=== PATIENT | female | born 1935 | race Caucasian/White ===

== ENCOUNTER 2017-05-31 11:49 | Emergency (ER) | payer OTHER ==
[~2017-05-31] VITALS: Ht 165.1 cm; Wt 84.4 kg
--- NOTE | 2017-05-31 11:52 | NUR ---
BRA FROM [facility] DT PT IS MORE ALTERED THAN USUAL, PATIENT RECEIVED ALTERED. APPEARS IN NO DISTRESS. PATIENT IS SATING WELL ON ROOM AIR, SATING 98%. SKIN IS NON DIAPHORETIC, . GOWNED PT AND PLACED ON TELE MONITOR,. MD MACHADO AT BEDSIDE
--- NOTE | 2017-05-31 11:53 | NUR ---
Note undone in EDM - 05/31/17 at 1553 by [email or web address] BIBRA FROM HOME DT PT IS MORE ALTERED THAN USUAL, PATIENT RECEIVED ALTERED. APPEARS IN NO DISTRESS. PATIENT IS SATING WELL ON ROOM AIR, SATING 98%. SKIN IS NON DIAPHORETIC, . GOWNED PT AND PLACED ON TELE MONITOR,. MD MACHADO AT BEDSIDE
[2017-05-31] MEDS ORDERED: IV NS 0.9% 1,000 ML BAG IV ONE ×2 (12:00→13:30)
[2017-05-31 12:05] LABS: BASOPHILS # (AUTO) 0.1 /CMM (0.0-0.2); BASOPHILS % (AUTO) 1.5 % (0.0-2.0); EOSINOPHILS % (AUTO) 0.4 % (0.0-6.0); HEMATOCRIT 34 % (33-45); HEMOGLOBIN 11.2 g/dL (11.5-14.8); LYMPHOCYTES # (AUTO) 1.7 /CMM (0.8-4.8); LYMPHOCYTES % (AUTO) 22.4 % (20.0-44.0); MEAN CORPUSCULAR HEMOGLOBIN 27 PG (26.0-33.0); MEAN CORPUSCULAR HGB CONC 33 g/dl (31.0-36.0); MEAN CORPUSCULAR VOLUME 82 fL (82-100); MONOCYTES # (AUTO) 0.7 /CMM (0.1-1.30); MONOCYTES % (AUTO) 8.8 % (2.0-12.0); NEUTROPHILS # (AUTO) 5.1 /CMM (1.8-8.9); NEUTROPHILS % (AUTO) 66.9 % (43.0-81.0); PLATELET COUNT (AUTO) 250 /CMM (150-450); RDW COEFFICIENT OF VARIATION 13.8 (11.5-15.0); RED BLOOD CELL COUNT(AUTO) 4.16 MIL/uL (4.0-5.2); WHITE BLOOD COUNT (AUTO) 7.6 K/uL (4.3-11.0)
[2017-05-31 12:15] LABS: CALCIUM, SERUM 9.2 mg/dL (8.5-10.1); CARBON DIOXIDE 29 mmol/L (21-32); CHLORIDE 102 mmol/L (98-107); GLUCOSE 232 mg/dL (74-106); POTASSIUM 3.4 mmol/L (3.5-5.1); SODIUM SERUM 140 mmol/L (136-145); UREA NITROGEN, BLOOD 39 mg/dL (7-18)
[2017-05-31 12:19] LABS: INR 1.05 (0.85-1.15)
[2017-05-31 12:20] LABS: ALANINE AMINOTRANSFERASE 11 U/L (12-78); ALBUMIN 3.1 g/dL (3.4-5.0); ALKALINE PHOSPHATASE 71 U/L (46-116); ASPARTATE AMINOTRANSFERASE 15 U/L (15-37); BILIRUBIN,DIRECT 0.1 mg/dL (0.0-0.2); BILIRUBIN,TOTAL 0.4 mg/dL (0.2-1.0); TOTAL PROTEIN, SERUM 6.6 g/dL (6.4-8.2)
[2017-05-31 12:23] LABS: TROPONIN I < 0.017 ng/mL (0.00-0.056)
--- NOTE | 2017-05-31 12:28 | NUR ---
PATIENT TRANSPORTED FOR CT.
[2017-05-31 13:19] LABS: APPEARANCE,URINE Clear (CLEAR); BILIRUBIN,URINE Negative (NEGATIVE); BLOOD, URINE Large Ery/uL (NEGATIVE); COLOR,URINE Yellow (YELLOW); KETONES,URINE Trace (NEGATIVE); LEUKOCYTE ESTERASE ,URINE Trace (NEGATIVE); NITRITE, URINE Negative (NEGATIVE); PH,URINE 6.5 (5.0-8.0); PROTEIN,URINE 100 mg/dl (NEGATIVE); UGLUCOSE Negative (NEGATIVE); UROBILINOGEN,URINE 0.2 EU/dL (0.2)
[2017-05-31 13:30] LABS: BACTERIA,URINE None seen /HPF (None Seen); RBC,URINE 51-80 /HPF (0-2); SQUAMOUS EPITHELIAL CELL,UR Few /HPF (None Seen)
[2017-05-31] MEDS ORDERED: CEFTRIAXONE 1GM BAG (ER ONLY) 50 ML IV ONE ×2 (13:30→13:58)
--- NOTE | 2017-05-31 13:39 | NUR ---
CALLED [facility] SPOKE WITH TRAUMA DIRECTOR BURKE. WAITING FOR A CALL BACK FROM [facility].
--- NOTE | 2017-05-31 13:48 | NUR ---
DR MACHADO ON THE PHONE WITH DR WAGNER AT [facility]
--- NOTE | 2017-05-31 15:09 | NUR ---
PATIENT WILL BE TRANSFERRED TO [facility] ER, ACCEPTED BY [facility] ETA 1545 RN TO RN REPORT CAN BE GIVEN
[2017-05-31 15:30] VITALS: BP 154/69
--- NOTE | 2017-05-31 16:42 | NUR ---
REPORT GIVEN TO HUMPHREY BREWER FOR [facility] GO[facility].
== END 2017-05-31 16:44 | disposition short-term general hospital (02) ==
LOC: ER 11:53
DX: R41.82 Altered mental status, unspecified (principal); E87.2 Acidosis; I10 Essential (primary) hypertension; K21.9 Gastro-esophageal reflux disease without esophagitis; E11.9 Type 2 diabetes mellitus without complications
CPT/HCPCS: 36415; 70450; 71045; 80048; 80076; 81001; 83605 ×2; 84484; 85025; 85730; 87040 ×2; 87081; 87086; 87804; 93005; 96360; 96365; 99285; A4606; J0696; J7030 ×2; 81000-TC; 87400; Z7610